=== PATIENT | male | born 1945 | race Caucasian/White ===

== ENCOUNTER 2024-03-14 16:12 | Emergency (ER) | payer OTHER ==
[2024-03-14] MEDS ORDERED: Bacitracin 1 PK ONE (16:54)
[2024-03-14] MEDS ORDERED: Acetaminophen 500 MG TAB ONE (16:54)
== END 2024-03-14 17:43 | disposition home or self-care (01) ==
LOC: MADERS 16:12
DX: S42.442A Displaced fracture (avulsion) of medial epicondyle of left humerus, initial encounter for closed fracture (principal); E78.5 Hyperlipidemia, unspecified; V59.88XA Occupant (driver) (passenger) of pick-up truck or van injured in other specified transport accidents, initial encounter
CPT/HCPCS: 24560